=== PATIENT | male | born 1935 | race Caucasian/White ===

== ENCOUNTER 2024-04-21 18:36 | Inpatient (IN) | payer MEDICARE, OTHER ==
[~2024-04-21] VITALS: Ht 154.9 cm; Wt 40.8 kg
[2024-04-21] MEDS ORDERED: HYDROMORPHONE 1 MG/1 ML DISP.SYRIN ONE (19:27)
[2024-04-21] MEDS ORDERED: ONDANSETRON 4 MG/2 ML VIAL ONE (19:27)
[2024-04-21 19:28] LABS: BASOPHILS % (AUTO) 0.4 % (0.0-2.0); EOSINOPHILS % (AUTO) 0.2 % (0.0-7.0); HEMOGLOBIN 13.7 g/dL (12.5-16.3); LYMPHOCYTES # (AUTO) 1.3 K/uL (0.8-4.8); LYMPHOCYTES % (AUTO) 18.4 % (20.5-51.5); MEAN CORPUSCULAR HEMOGLOBIN 32.5 uug (23.8-33.4); MEAN CORPUSCULAR HGB CONC 33 g/dL (32.5-36.3); MEAN CORPUSCULAR VOLUME 97.4 fL (73.0-96.2); MONOCYTES # (AUTO) 0.9 K/uL (0.1-1.30); MONOCYTES % (AUTO) 13.6 % (0.0-11.0); NEUTROPHILS # (AUTO) 4.7 K/uL (1.8-8.9); NEUTROPHILS % (AUTO) 67.4 % (38.5-71.5); PLATELET COUNT (AUTO) 118 K/uL (152-348); RED BLOOD CELL COUNT(AUTO) 4.21 MIL/uL (4.06-5.63); RED CELL DISTRIBUTION WIDTH 15.8 % (12.1-16.2)
[2024-04-21 19:34] LABS: DIFFERENTIAL COMMENT 1
[2024-04-21 19:35] LABS: CALCIUM 9.7 mg/dL (8.5-10.1); CARBON DIOXIDE 35 mmol/L (21-32); CHLORIDE 98 mmol/L (98-107); CREATININE 1.9 mg/dL (0.6-1.3); GLUCOSE 94 mg/dL (74-106); POTASSIUM 4.7 mmol/L (3.5-5.1); SODIUM SERUM 140 mmol/L (136-145); UREA NITROGEN, BLOOD 50 mg/dL (7-18)
[2024-04-21] MEDS: HYDROMORPHONE 1 MG/1 ML DISP.SYRIN IV ONE (19:36)
[2024-04-21] MEDS: IV NORMAL SALINE 500 ML BAG IV ONE ×2 (19:36→22:50)
[2024-04-21] MEDS: ONDANSETRON 4 MG/2 ML VIAL IV ONE (19:37)
[2024-04-21 19:49] LABS: ALANINE AMINOTRANSFERASE 20 U/L (16-63); ALBUMIN 2.8 g/dL (3.4-5.0); ALKALINE PHOSPHATASE 88 U/L (50-136); ASPARTATE AMINOTRANSFERASE 25 U/L (15-37); BILIRUBIN,DIRECT 5.5 mg/dL (0.0-0.2); BILIRUBIN,TOTAL 5.9 mg/dL (0.2-1.0); NT-PRO BNP 19616 pg/mL (0-125); TOTAL PROTEIN, SERUM 8.5 g/dL (6.4-8.2)
[2024-04-21] MEDS ORDERED: ASPIRIN 81 MG TAB.CHEW ONE (20:17)
[2024-04-21] MEDS ORDERED: ENOXAPARIN SODIUM 40 MG/0.4 ML DISP.SYRIN SQ ONE (20:18)
[2024-04-21] MEDS ORDERED: NITROGLYCERIN OINT 1 GM PACKET TP ONE (20:18)
[2024-04-21] MEDS: NITROGLYCERIN OINT 1 GM PACKET TP ONE (20:38)
[2024-04-21] MEDS: ENOXAPARIN SODIUM 40 MG/0.4 ML DISP.SYRIN SQ ONE (20:40)
[2024-04-21] MEDS: ASPIRIN 81 MG TAB.CHEW PO ONE (20:41)
[2024-04-21 21:05] LABS: ABG BASE EXCESS 0.1 mmol/L (-2.0-3.0); ABG HCO3 35.8 mmol/L (21.0-28.0); ABG PCO2 144.2 mmHg (35.0-48.0); ABG PH 7.013 (7.350-7.450); ABG PO2 167.4 mmHg (83.0-108.0); ABG SITE RIGHT RADIAL; ABG TOTAL HEMOGLOBIN 14.3 G/dL (13.5-17.5); COHb 1.1 % (0.5-1.5); MetHb 0.5 % (0.0-1.5); O2Hb 97.1 % (94.0-98.0)
[2024-04-21] MEDS: ETOMIDATE 20 MG/10 ML VIAL IV ONE (21:51)
[2024-04-21] MEDS: SUCCINYLCHOLINE CHLORIDE 200 MG/10 ML VIAL IV ONE (21:52)
[2024-04-21] MEDS ORDERED: ETOMIDATE 20 MG/10 ML VIAL ONE ×2 (22:30)
[2024-04-21] MEDS ORDERED: PROPOFOL 100 ML ONE (22:36)
[2024-04-21] MEDS ORDERED: ONDANSETRON 4 MG/2 ML VIAL IV PRN (22:45)
[2024-04-21] MEDS ORDERED: ACETAMINOPHEN 650 MG SUPP.RECT RC PRN (22:45)
[2024-04-21] MEDS ORDERED: REMEDY ESSENTIAL ZINC PASTE 113 GM TP PRN (22:45)
[2024-04-21] MEDS: PROPOFOL 100 ML IV ONE (22:50)
[2024-04-21 23:04] LABS: ABG BASE EXCESS 1.5 mmol/L (-2.0-3.0); ABG HCO3 27.5 mmol/L (21.0-28.0); ABG PCO2 48.5 mmHg (35.0-48.0); ABG PH 7.371 (7.350-7.450); ABG PO2 372.9 mmHg (83.0-108.0); ABG SITE RIGHT RADIAL; ABG TOTAL HEMOGLOBIN 13.5 G/dL (13.5-17.5); AaDO2 99.8 mmHg; COHb 0.8 % (0.5-1.5); MetHb 0.2 % (0.0-1.5); O2Hb 98.7 % (94.0-98.0); VT, ABG 450 mL
[2024-04-21] MEDS: IV NORMAL SALINE 1000 ML BAG IV ONE (23:59)
[2024-04-22] VITALS (58 sets, daily range): BP systolic 56–165; BP diastolic 37–96; TEMP 97.3–99.8; O2SAT 93–100
[2024-04-22] MEDS ORDERED: NOREPINEPHRINE 8MG/NS 250ML 250 ML IV PRN ×2 (02:00→02:45)
[2024-04-22] MEDS: NOREPINEPHRINE 8MG/NS 250ML 250 ML IV PRN (02:59)
[2024-04-22] MEDS: PROPOFOL 100 ML IV PRN (03:19)
[2024-04-22 07:46] LABS: ABG BASE EXCESS 0.5 mmol/L (-2.0-3.0); ABG HCO3 21.1 mmol/L (21.0-28.0); ABG PCO2 24.1 mmHg (35.0-48.0); ABG PO2 84.5 mmHg (83.0-108.0); ABG SITE RIGHT RADIAL; ABG TOTAL HEMOGLOBIN 13.3 G/dL (13.5-17.5); AaDO2 97.6 mmHg; COHb 0.2 % (0.5-1.5); MetHb 0.3 % (0.0-1.5); O2Hb 97.2 % (94.0-98.0); VT, ABG 450 mL
[2024-04-22 07:56] LABS: BASOPHILS # (AUTO) 0.1 K/UL (0.0-0.2); BASOPHILS % (AUTO) 0.8 % (0.0-2.0); EOSINOPHILS % (AUTO) 0.2 % (0.0-7.0); HEMATOCRIT 35.7 % (36.7-47.1); LYMPHOCYTES # (AUTO) 1.5 K/uL (0.8-4.8); LYMPHOCYTES % (AUTO) 11.3 % (20.5-51.5); MEAN CORPUSCULAR HEMOGLOBIN 31.8 uug (23.8-33.4); MEAN CORPUSCULAR HGB CONC 34 g/dL (32.5-36.3); MEAN CORPUSCULAR VOLUME 94.9 fL (73.0-96.2); MONOCYTES % (AUTO) 7.8 % (0.0-11.0); NEUTROPHILS # (AUTO) 10.5 K/uL (1.8-8.9); NEUTROPHILS % (AUTO) 79.9 % (38.5-71.5); PLATELET COUNT (AUTO) 180 K/uL (152-348); RED BLOOD CELL COUNT(AUTO) 3.76 MIL/uL (4.06-5.63); RED CELL DISTRIBUTION WIDTH 15.2 % (12.1-16.2); WHITE BLOOD COUNT (AUTO) 13.1 K/uL (3.6-10.2)
[2024-04-22 07:59] LABS: DIFFERENTIAL COMMENT 1
[2024-04-22 08:31] LABS: MAGNESIUM 1.7 mg/dL (1.8-2.4); PHOSPHOROUS 2.2 mg/dL (2.5-4.9)
[2024-04-22 08:34] LABS: ALANINE AMINOTRANSFERASE 18 U/L (16-63); ALBUMIN 2.2 g/dL (3.4-5.0); ALKALINE PHOSPHATASE 72 U/L (50-136); ASPARTATE AMINOTRANSFERASE 33 U/L (15-37); BILIRUBIN,TOTAL 5.8 mg/dL (0.2-1.0); CARBON DIOXIDE 27 mmol/L (21-32); CHLORIDE 103 mmol/L (98-107); CREATININE 2.1 mg/dL (0.6-1.3); POTASSIUM 4.2 mmol/L (3.5-5.1); SODIUM SERUM 142 mmol/L (136-145); TOTAL PROTEIN, SERUM 6.9 g/dL (6.4-8.2); UREA NITROGEN, BLOOD 54 mg/dL (7-18)
[2024-04-22 08:54] LABS: GLUCOSE 48 mg/dL (74-106)
[2024-04-22] MEDS: PANTOPRAZOLE SODIUM 40 MG VIAL IV SCH (10:31)
[2024-04-22] MEDS: IV D5 1/2 NS 1000 ML 1,000 ML IV SCH (10:49)
[2024-04-22 11:14] LABS: ANISOCYTOSIS 1+; BAND % (MANUAL) 4 % (0-10); LYMPHOCYTES % (MANUAL) 18 % (20-40); MONOCYTES % (MANUAL) 5 % (2-10); NEUTROPHILS % (MANUAL) 73 % (42-75); PLATELET ESTIMATE ADEQUATE
[2024-04-22] MEDS ORDERED: PIPERACILLIN SODIUM/TAZOBACTAM 3.375 G in IV DEXTROSE 5% 50 ML IV SCH (12:00)
[2024-04-22] MEDS: MAGNESIUM SULFATE/D5W 100 ML IV SCH (12:05)
[2024-04-22] MEDS: PRECEDEX 400 MCG/100 ML BOTTLE 100 ML IV PRN (12:11)
[2024-04-22] MEDS: methylPREDNISolone SOD SUCC 40 MG/ML VIAL IV SCH (12:32)
[2024-04-22] MEDS: FENTANYL CITRATE/PF 1,000 MCG in IV NORMAL SALINE 80 ML IV PRN (12:55)
[2024-04-22 13:16] LABS: ABG BASE EXCESS 1.9 mmol/L (-2.0-3.0); ABG HCO3 25.3 mmol/L (21.0-28.0); ABG PCO2 35.5 mmHg (35.0-48.0); ABG PO2 100.3 mmHg (83.0-108.0); ABG SITE RIGHT RADIAL; ABG TOTAL HEMOGLOBIN 13.5 G/dL (13.5-17.5); AaDO2 97.9 mmHg; COHb 0.3 % (0.5-1.5); MetHb 0.3 % (0.0-1.5); O2Hb 97.5 % (94.0-98.0); VT, ABG 330 mL
[2024-04-22] MEDS: LEVALBUTEROL HCL NEB 0.63 MG/3 ML NEBU NEB SCH (14:04)
[2024-04-22] MEDS: IPRATROPIUM BROMIDE 0.5 MG/2.5 ML NEBU NEB SCH (14:04)
[2024-04-22] MEDS: VANCOMYCIN HCL 750 MG in IV DEXTROSE 5% 250 ML IV ONE (20:11)
[2024-04-22] MEDS: PIPERACILLIN/TAZO 2.25 G in IV DEXTROSE 5% 50 ML IV SCH (20:29)
[2024-04-22] MEDS: SODIUM PHOSPHATE MM 15 MMOL in IV NORMAL SALINE 250 ML IV ONE (20:29)
[2024-04-22] MEDS ORDERED: ENOXAPARIN SODIUM 30 MG/0.3 ML DISP.SYRIN SUBCUT SCH (21:00)
[2024-04-22] MEDS: ENOXAPARIN SODIUM 40 MG/0.4 ML DISP.SYRIN SQ SCH (21:22)
[2024-04-23] VITALS (67 sets, daily range): BP systolic 58–174; BP diastolic 46–100; TEMP 97.8–98.8; O2SAT 97–100
[2024-04-23] MEDS ORDERED: CEFEPIME HCL 1 G VIAL ONE (00:19)
[2024-04-23] MEDS: CEFEPIME HCL 1 G in IV DEXTROSE 5% 50 ML IV ONE (02:18)
[2024-04-23 05:11] LABS: HEMATOCRIT 37.7 % (36.7-47.1); HEMOGLOBIN 12.6 g/dL (12.5-16.3); LYMPHOCYTES # (AUTO) 0.7 K/uL (0.8-4.8); LYMPHOCYTES % (AUTO) 5.5 % (20.5-51.5); MEAN CORPUSCULAR HEMOGLOBIN 31.8 uug (23.8-33.4); MEAN CORPUSCULAR HGB CONC 34 g/dL (32.5-36.3); MEAN CORPUSCULAR VOLUME 94.8 fL (73.0-96.2); MONOCYTES # (AUTO) 0.5 K/uL (0.1-1.30); MONOCYTES % (AUTO) 4.3 % (0.0-11.0); NEUTROPHILS # (AUTO) 10.9 K/uL (1.8-8.9); NEUTROPHILS % (AUTO) 90.2 % (38.5-71.5); PLATELET COUNT (AUTO) 139 K/uL (152-348); RED BLOOD CELL COUNT(AUTO) 3.98 MIL/uL (4.06-5.63); RED CELL DISTRIBUTION WIDTH 15.8 % (12.1-16.2); WHITE BLOOD COUNT (AUTO) 12.1 K/uL (3.6-10.2)
[2024-04-23 05:25] LABS: ALANINE AMINOTRANSFERASE 16 U/L (16-63); ALBUMIN 1.9 g/dL (3.4-5.0); ALKALINE PHOSPHATASE 69 U/L (50-136); ASPARTATE AMINOTRANSFERASE 33 U/L (15-37); BILIRUBIN,TOTAL 5.3 mg/dL (0.2-1.0); CALCIUM 8.1 mg/dL (8.5-10.1); CARBON DIOXIDE 25 mmol/L (21-32); CHLORIDE 99 mmol/L (98-107); CREATININE 2.1 mg/dL (0.6-1.3); GLUCOSE 319 mg/dL (74-106); POTASSIUM 4.1 mmol/L (3.5-5.1); SODIUM SERUM 137 mmol/L (136-145); TOTAL PROTEIN, SERUM 6.8 g/dL (6.4-8.2); UREA NITROGEN, BLOOD 50 mg/dL (7-18)
[2024-04-23 06:56] LABS: BILIRUBIN,DIRECT 4.8 mg/dL (0.0-0.2); PHOSPHOROUS 5.8 mg/dL (2.5-4.9)
[2024-04-23 06:59] LABS: THYROID STIMULATING HORMONE 3.406 mIU/mL (0.358-3.740)
[2024-04-23 07:20] LABS: VANCOMYCIN,RANDOM 10.1 ug/mL (20.0-30.0)
[2024-04-23] MEDS: VANCOMYCIN IV 500 MG in IV DEXTROSE 5% 100 ML IV ONE (09:04)
[2024-04-23] MEDS: APIXABAN 2.5 MG TABLET PO SCH (11:10)
[2024-04-23 11:43] LABS: *BLOOD, URINE 3+ (NEGATIVE); *CLARITY,URINE CLEAR (CLEAR); *COLOR,URINE YELLOW (YELLOW); *KETONES,URINE NEGATIVE (NEGATIVE); *PROTEIN,URINE 2+ (NEGATIVE); *UROBILINOGEN,URINE 0.2 E.U./dl (NORMAL); LEUKOCYTE ESTERASE ,URINE NEGATIVE (NEGATIVE); NITRITE, URINE NEGATIVE (NEGATIVE); PH,URINE 5.5 (5.0-8.0); UGLUCOSE TRACE (NEGATIVE)
[2024-04-23 11:49] LABS: *BILIRUBIN,URIN 1+ (NEGATIVE)
[2024-04-23 12:29] LABS: BACTERIA,URINE FEW /HPF (NONE SEEN); RBC,URINE 80-100 /HPF (0-3); SQUAMOUS EPITHELIAL CELL,UR FEW /HPF (NONE SEEN)
[2024-04-24] VITALS (19 sets, daily range): BP systolic 86–168; BP diastolic 48–126; TEMP 94.8–98.8; O2SAT 99–100
[2024-04-24] MEDS ORDERED: CEFEPIME HCL 0.5 G in IV DEXTROSE 5% 50 ML IV SCH ×2 (02:00→09:00)
[2024-04-24] MEDS: CEFEPIME HCL 1 G in IV DEXTROSE 5% 50 ML IV SCH (02:37)
[2024-04-24 05:16] LABS: BASOPHILS % (AUTO) 0.2 % (0.0-2.0); HEMATOCRIT 37.2 % (36.7-47.1); HEMOGLOBIN 12.1 g/dL (12.5-16.3); LYMPHOCYTES # (AUTO) 0.3 K/uL (0.8-4.8); MEAN CORPUSCULAR HEMOGLOBIN 31.1 uug (23.8-33.4); MEAN CORPUSCULAR HGB CONC 33 g/dL (32.5-36.3); MEAN CORPUSCULAR VOLUME 95.8 fL (73.0-96.2); MONOCYTES # (AUTO) 0.7 K/uL (0.1-1.30); MONOCYTES % (AUTO) 6.5 % (0.0-11.0); NEUTROPHILS # (AUTO) 10.4 K/uL (1.8-8.9); NEUTROPHILS % (AUTO) 90.3 % (38.5-71.5); PLATELET COUNT (AUTO) 150 K/uL (152-348); RED BLOOD CELL COUNT(AUTO) 3.89 MIL/uL (4.06-5.63); RED CELL DISTRIBUTION WIDTH 16.5 % (12.1-16.2); WHITE BLOOD COUNT (AUTO) 11.5 K/uL (3.6-10.2)
[2024-04-24 05:25] LABS: DIFFERENTIAL COMMENT 1
[2024-04-24 05:44] LABS: ALANINE AMINOTRANSFERASE 17 U/L (16-63); ALBUMIN 1.9 g/dL (3.4-5.0); ALKALINE PHOSPHATASE 69 U/L (50-136); ASPARTATE AMINOTRANSFERASE 26 U/L (15-37); BILIRUBIN,TOTAL 4.7 mg/dL (0.2-1.0); CALCIUM 8.4 mg/dL (8.5-10.1); CARBON DIOXIDE 28 mmol/L (21-32); CHLORIDE 96 mmol/L (98-107); CREATININE 2.1 mg/dL (0.6-1.3); MAGNESIUM 2.3 mg/dL (1.8-2.4); PHOSPHOROUS 4.9 mg/dL (2.5-4.9); POTASSIUM 4.2 mmol/L (3.5-5.1); SODIUM SERUM 133 mmol/L (136-145); TOTAL PROTEIN, SERUM 6.8 g/dL (6.4-8.2); UREA NITROGEN, BLOOD 57 mg/dL (7-18); VANCOMYCIN,RANDOM 13.7 ug/mL (20.0-30.0)
[2024-04-24 05:53] LABS: GLUCOSE 499 mg/dL (74-106)
[2024-04-24] MEDS ORDERED: DEXTROSE 50% 50 ML DISP.SYRIN IV PRN (06:30)
[2024-04-24] MEDS: BLOOD SUGAR DIAGNOSTIC 1 EACH STRIP VI SCH (09:01)
[2024-04-24] MEDS: INSULIN REGULAR, HUMAN 1000 UNIT/10 ML VIAL SQ PRN (09:21)
[2024-04-24 09:40] LABS: ABG BASE EXCESS -2.7 mmol/L (-2.0-3.0); ABG HCO3 22.8 mmol/L (21.0-28.0); ABG PCO2 41.9 mmHg (35.0-48.0); ABG PH 7.353 (7.350-7.450); ABG PO2 118.9 mmHg (83.0-108.0); AaDO2 98.2 mmHg; COHb 0.3 % (0.5-1.5); MetHb 0.3 % (0.0-1.5); O2Hb 98.2 % (94.0-98.0); VT, ABG 330 mL
[2024-04-24] MEDS ORDERED: IV NORMAL SALINE 100 ML BAG IV PRN (11:15)
[2024-04-24 13:43] LABS: ABG BASE EXCESS -2.6 mmol/L (-2.0-3.0); ABG HCO3 27.3 mmol/L (21.0-28.0); ABG PH 7.191 (7.350-7.450); ABG PO2 99.7 mmHg (83.0-108.0); ABG SITE LEFT RADIAL; ABG TOTAL HEMOGLOBIN 13.7 G/dL (13.5-17.5); AaDO2 95.8 mmHg; COHb 0.3 % (0.5-1.5); MetHb 0.3 % (0.0-1.5); O2Hb 96.4 % (94.0-98.0)
[2024-04-24] MEDS: VANCOMYCIN IV 500 MG in IV DEXTROSE 5% 100 ML IV ONE (17:03)
[2024-04-24] MEDS: ALBUTEROL SULFATE 1.25 MG/3 ML NEBU NEB SCH (19:24)
[2024-04-25] VITALS (96 sets, daily range): BP systolic 76–131; BP diastolic 48–102; TEMP 97.6–98.8; O2SAT 98–100
[2024-04-25 05:28] LABS: BASOPHILS % (AUTO) 0.2 % (0.0-2.0); HEMATOCRIT 35.2 % (36.7-47.1); HEMOGLOBIN 11.7 g/dL (12.5-16.3); LYMPHOCYTES # (AUTO) 0.7 K/uL (0.8-4.8); LYMPHOCYTES % (AUTO) 6.6 % (20.5-51.5); MEAN CORPUSCULAR HEMOGLOBIN 31.5 uug (23.8-33.4); MEAN CORPUSCULAR HGB CONC 33 g/dL (32.5-36.3); MEAN CORPUSCULAR VOLUME 94.9 fL (73.0-96.2); NEUTROPHILS # (AUTO) 9.2 K/uL (1.8-8.9); NEUTROPHILS % (AUTO) 84.2 % (38.5-71.5); PLATELET COUNT (AUTO) 156 K/uL (152-348); RED BLOOD CELL COUNT(AUTO) 3.71 MIL/uL (4.06-5.63); RED CELL DISTRIBUTION WIDTH 15.5 % (12.1-16.2); WHITE BLOOD COUNT (AUTO) 10.9 K/uL (3.6-10.2)
[2024-04-25 05:39] LABS: DIFFERENTIAL COMMENT 1
[2024-04-25 06:15] LABS: ALANINE AMINOTRANSFERASE 23 U/L (16-63); ALBUMIN 1.9 g/dL (3.4-5.0); ALKALINE PHOSPHATASE 78 U/L (50-136); ASPARTATE AMINOTRANSFERASE 20 U/L (15-37); BILIRUBIN,TOTAL 3.8 mg/dL (0.2-1.0); CALCIUM 8.1 mg/dL (8.5-10.1); CARBON DIOXIDE 27 mmol/L (21-32); CHLORIDE 102 mmol/L (98-107); CREATININE 2.1 mg/dL (0.6-1.3); GLUCOSE 224 mg/dL (74-106); POTASSIUM 4.5 mmol/L (3.5-5.1); SODIUM SERUM 137 mmol/L (136-145); TOTAL PROTEIN, SERUM 6.6 g/dL (6.4-8.2); UREA NITROGEN, BLOOD 64 mg/dL (7-18)
[2024-04-25] MEDS: IV NS 1000 ML 1,000 ML IV PRN (08:39)
[2024-04-25] MEDS: GLUCERNA 1.2 1000ML LIQUID GT PRN (11:17)
[2024-04-25 15:37] LABS: ABG BASE EXCESS -1.1 mmol/L (-2.0-3.0); ABG HCO3 26.1 mmol/L (21.0-28.0); ABG PCO2 54.3 mmHg (35.0-48.0); ABG PO2 107.6 mmHg (83.0-108.0); ABG SITE RIGHT RADIAL; AaDO2 97.4 mmHg; COHb 0.3 % (0.5-1.5); MetHb 0.3 % (0.0-1.5); O2Hb 97.6 % (94.0-98.0); VT, ABG 330 mL
[2024-04-25] MEDS: VANCOMYCIN IV 500 MG in IV DEXTROSE 5% 100 ML IV ONE (18:04)
[2024-04-26] VITALS (83 sets, daily range): BP systolic 90–149; BP diastolic 50–92; TEMP 96.9–98.8; O2SAT 97–100
[2024-04-26 05:56] LABS: BASOPHILS % (AUTO) 0.1 % (0.0-2.0); HEMATOCRIT 34.5 % (36.7-47.1); HEMOGLOBIN 11.5 g/dL (12.5-16.3); LYMPHOCYTES # (AUTO) 0.7 K/uL (0.8-4.8); LYMPHOCYTES % (AUTO) 10.2 % (20.5-51.5); MEAN CORPUSCULAR HGB CONC 34 g/dL (32.5-36.3); MEAN CORPUSCULAR VOLUME 95.6 fL (73.0-96.2); MONOCYTES # (AUTO) 0.8 K/uL (0.1-1.30); MONOCYTES % (AUTO) 11.2 % (0.0-11.0); NEUTROPHILS # (AUTO) 5.7 K/uL (1.8-8.9); NEUTROPHILS % (AUTO) 78.5 % (38.5-71.5); PLATELET COUNT (AUTO) 123 K/uL (152-348); RED BLOOD CELL COUNT(AUTO) 3.61 MIL/uL (4.06-5.63); RED CELL DISTRIBUTION WIDTH 15.8 % (12.1-16.2); WHITE BLOOD COUNT (AUTO) 7.3 K/uL (3.6-10.2)
[2024-04-26 06:01] LABS: ABG BASE EXCESS 1.1 mmol/L (-2.0-3.0); ABG HCO3 28.3 mmol/L (21.0-28.0); ABG PCO2 56.4 mmHg (35.0-48.0); ABG PH 7.318 (7.350-7.450); ABG PO2 104.9 mmHg (83.0-108.0); ABG SITE RIGHT RADIAL; ABG TOTAL HEMOGLOBIN 12.6 G/dL (13.5-17.5); AaDO2 97.3 mmHg; MetHb 0.2 % (0.0-1.5); O2Hb 97.8 % (94.0-98.0); VT, ABG 330 mL
[2024-04-26 06:39] LABS: DIFFERENTIAL COMMENT 1
[2024-04-26 06:44] LABS: ALANINE AMINOTRANSFERASE 15 U/L (16-63); ALBUMIN 1.8 g/dL (3.4-5.0); ALKALINE PHOSPHATASE 111 U/L (50-136); ASPARTATE AMINOTRANSFERASE 14 U/L (15-37); BILIRUBIN,TOTAL 3.2 mg/dL (0.2-1.0); CALCIUM 8.1 mg/dL (8.5-10.1); CARBON DIOXIDE 28 mmol/L (21-32); CHLORIDE 106 mmol/L (98-107); CREATININE 1.9 mg/dL (0.6-1.3); GLUCOSE 242 mg/dL (74-106); POTASSIUM 4.6 mmol/L (3.5-5.1); SODIUM SERUM 140 mmol/L (136-145); TOTAL PROTEIN, SERUM 6.2 g/dL (6.4-8.2); UREA NITROGEN, BLOOD 62 mg/dL (7-18)
[2024-04-26 07:15] LABS: VANCOMYCIN,RANDOM 18.8 ug/mL (20.0-30.0)
[2024-04-26] MEDS: GLUCERNA 1.2 1000ML LIQUID GT PRN (10:00)
[2024-04-26] MEDS ORDERED: PROPOFOL 100 ML IV PRN (11:15)
[2024-04-26] MEDS: PROPOFOL 100 ML IV PRN (11:36)
[2024-04-26] MEDS ORDERED: ALBUMIN HUMAN 25% 100 ML ONE (20:42)
[2024-04-26] MEDS: ALBUMIN HUMAN 25% 100 ML IV ONE (20:52)
[2024-04-27] VITALS (78 sets, daily range): BP systolic 114–154; BP diastolic 59–92; TEMP 97.6–98.8; O2SAT 97–100
[2024-04-27 05:26] LABS: BASOPHILS % (AUTO) 0.1 % (0.0-2.0); HEMATOCRIT 34.6 % (36.7-47.1); HEMOGLOBIN 11.5 g/dL (12.5-16.3); LYMPHOCYTES # (AUTO) 0.9 K/uL (0.8-4.8); LYMPHOCYTES % (AUTO) 11.1 % (20.5-51.5); MEAN CORPUSCULAR HEMOGLOBIN 31.7 uug (23.8-33.4); MEAN CORPUSCULAR HGB CONC 33 g/dL (32.5-36.3); MEAN CORPUSCULAR VOLUME 95.4 fL (73.0-96.2); MONOCYTES # (AUTO) 1.1 K/uL (0.1-1.30); MONOCYTES % (AUTO) 12.6 % (0.0-11.0); NEUTROPHILS # (AUTO) 6.4 K/uL (1.8-8.9); NEUTROPHILS % (AUTO) 76.2 % (38.5-71.5); PLATELET COUNT (AUTO) 115 K/uL (152-348); RED BLOOD CELL COUNT(AUTO) 3.63 MIL/uL (4.06-5.63); RED CELL DISTRIBUTION WIDTH 15.8 % (12.1-16.2); WHITE BLOOD COUNT (AUTO) 8.4 K/uL (3.6-10.2)
[2024-04-27 06:01] LABS: CALCIUM 8.5 mg/dL (8.5-10.1); CARBON DIOXIDE 27 mmol/L (21-32); CHLORIDE 106 mmol/L (98-107); CREATININE 1.7 mg/dL (0.6-1.3); GLUCOSE 163 mg/dL (74-106); MAGNESIUM 2.2 mg/dL (1.8-2.4); PHOSPHOROUS 3.5 mg/dL (2.5-4.9); POTASSIUM 4.2 mmol/L (3.5-5.1); SODIUM SERUM 142 mmol/L (136-145); UREA NITROGEN, BLOOD 62 mg/dL (7-18)
[2024-04-27 06:02] LABS: ABG BASE EXCESS -0.4 mmol/L (-2.0-3.0); ABG HCO3 26.5 mmol/L (21.0-28.0); ABG PCO2 53.4 mmHg (35.0-48.0); ABG PH 7.314 (7.350-7.450); ABG PO2 105.4 mmHg (83.0-108.0); ABG TOTAL HEMOGLOBIN 12.5 G/dL (13.5-17.5); AaDO2 97.3 mmHg; COHb 0.3 % (0.5-1.5); MetHb 0.3 % (0.0-1.5); O2Hb 97.5 % (94.0-98.0); VT, ABG 330 mL
[2024-04-27] MEDS ORDERED: DEXTROSE 50% 50 ML DISP.SYRIN IV PRN (20:00)
[2024-04-27] MEDS ORDERED: INSULIN GLARGINE,HUM 300 UNITS/3 ML CARTRIDGE SQ ONE (21:25)
[2024-04-27] MEDS: INSULIN GLARGINE,HUM 300 UNITS/3 ML CARTRIDGE SQ SCH (21:55)
[2024-04-27 22:43] LABS: *BILIRUBIN,URIN NEGATIVE (NEGATIVE); *BLOOD, URINE 2+ (NEGATIVE); *CLARITY,URINE CLEAR (CLEAR); *COLOR,URINE YELLOW (YELLOW); *KETONES,URINE NEGATIVE (NEGATIVE); *PROTEIN,URINE 2+ (NEGATIVE); *UROBILINOGEN,URINE 0.2 E.U./dl (NORMAL); LEUKOCYTE ESTERASE ,URINE NEGATIVE (NEGATIVE); NITRITE, URINE NEGATIVE (NEGATIVE); PH,URINE 5.5 (5.0-8.0); UGLUCOSE TRACE (NEGATIVE)
[2024-04-27 23:12] LABS: BACTERIA,URINE FEW /HPF (NONE SEEN); SQUAMOUS EPITHELIAL CELL,UR MODERATE /HPF (NONE SEEN); WBC,URINE 0-3 /HPF (0-3)
[2024-04-27 23:13] LABS: CALCIUM OXALATE CRYSTALS,UR FEW /HPF (NONE SEEN)
[2024-04-27 23:19] LABS: MUCUS,URINE FEW /LPF (0-FEW)
[2024-04-28] VITALS (58 sets, daily range): BP systolic 100–143; BP diastolic 55–95; TEMP 97.5–99; O2SAT 98–100
[2024-04-28] MEDS: BLOOD SUGAR DIAGNOSTIC 1 EACH STRIP VI SCH (00:23)
[2024-04-28] MEDS: INSULIN REGULAR, HUMAN 1000 UNIT/10 ML VIAL SQ PRN (00:26)
[2024-04-28 05:21] LABS: BASOPHILS % (AUTO) 0.1 % (0.0-2.0); EOSINOPHILS % (AUTO) 0.2 % (0.0-7.0); HEMATOCRIT 35.7 % (36.7-47.1); HEMOGLOBIN 11.9 g/dL (12.5-16.3); LYMPHOCYTES # (AUTO) 1.1 K/uL (0.8-4.8); LYMPHOCYTES % (AUTO) 13.1 % (20.5-51.5); MEAN CORPUSCULAR HEMOGLOBIN 31.5 uug (23.8-33.4); MEAN CORPUSCULAR HGB CONC 33 g/dL (32.5-36.3); MEAN CORPUSCULAR VOLUME 94.8 fL (73.0-96.2); MONOCYTES # (AUTO) 1.4 K/uL (0.1-1.30); MONOCYTES % (AUTO) 17.2 % (0.0-11.0); NEUTROPHILS # (AUTO) 5.8 K/uL (1.8-8.9); NEUTROPHILS % (AUTO) 69.4 % (38.5-71.5); PLATELET COUNT (AUTO) 108 K/uL (152-348); RED BLOOD CELL COUNT(AUTO) 3.77 MIL/uL (4.06-5.63); RED CELL DISTRIBUTION WIDTH 15.7 % (12.1-16.2); WHITE BLOOD COUNT (AUTO) 8.3 K/uL (3.6-10.2)
[2024-04-28 05:47] LABS: ALANINE AMINOTRANSFERASE 27 U/L (16-63); ALBUMIN 1.9 g/dL (3.4-5.0); ALKALINE PHOSPHATASE 115 U/L (50-136); ASPARTATE AMINOTRANSFERASE 20 U/L (15-37); BILIRUBIN,TOTAL 3.2 mg/dL (0.2-1.0); CALCIUM 8.4 mg/dL (8.5-10.1); CARBON DIOXIDE 30 mmol/L (21-32); CHLORIDE 108 mmol/L (98-107); CREATININE 1.6 mg/dL (0.6-1.3); GLUCOSE 170 mg/dL (74-106); MAGNESIUM 2.1 mg/dL (1.8-2.4); PHOSPHOROUS 2.7 mg/dL (2.5-4.9); SODIUM SERUM 144 mmol/L (136-145); UREA NITROGEN, BLOOD 57 mg/dL (7-18)
[2024-04-28 06:05] LABS: ABG BASE EXCESS 1.8 mmol/L (-2.0-3.0); ABG HCO3 27.1 mmol/L (21.0-28.0); ABG PCO2 45.2 mmHg (35.0-48.0); ABG PH 7.396 (7.350-7.450); ABG PO2 118.8 mmHg (83.0-108.0); ABG SITE LEFT RADIAL; ABG TOTAL HEMOGLOBIN 12.3 G/dL (13.5-17.5); AaDO2 98.3 mmHg; COHb 0.3 % (0.5-1.5); MetHb 0.4 % (0.0-1.5); O2Hb 97.8 % (94.0-98.0); VT, ABG 330 mL
[2024-04-28 06:25] LABS: DIFFERENTIAL COMMENT 1
[2024-04-28] MEDS: PANTOPRAZOLE ORAL SUSPENSION 40 MG SUSPDR.PKT GT SCH (09:19)
[2024-04-28 10:46] LABS: EOSINOPHILS % (MANUAL) 1 % (0-8); LYMPHOCYTES % (MANUAL) 13 % (20-40); MONOCYTES % (MANUAL) 17 % (2-10); NEUTROPHILS % (MANUAL) 69 % (42-75); PLATELET ESTIMATE DECREASED
[2024-04-28] MEDS: MEDIHONEY= THERAHONEY 1.5 OZ TUBE TOP SCH (13:40)
[2024-04-29] VITALS (57 sets, daily range): BP systolic 106–160; BP diastolic 58–103; TEMP 97.5–98.7; O2SAT 99–100
[2024-04-29 05:16] LABS: BASOPHILS % (AUTO) 0.3 % (0.0-2.0); EOSINOPHILS # (AUTO) 0.1 K/uL (0.0-0.7); EOSINOPHILS % (AUTO) 0.8 % (0.0-7.0); HEMOGLOBIN 12.6 g/dL (12.5-16.3); LYMPHOCYTES % (AUTO) 12.4 % (20.5-51.5); MEAN CORPUSCULAR HEMOGLOBIN 32.3 uug (23.8-33.4); MEAN CORPUSCULAR HGB CONC 34 g/dL (32.5-36.3); MEAN CORPUSCULAR VOLUME 94.6 fL (73.0-96.2); NEUTROPHILS # (AUTO) 5.8 K/uL (1.8-8.9); NEUTROPHILS % (AUTO) 73.5 % (38.5-71.5); PLATELET COUNT (AUTO) 106 K/uL (152-348); RED BLOOD CELL COUNT(AUTO) 3.91 MIL/uL (4.06-5.63); RED CELL DISTRIBUTION WIDTH 16.1 % (12.1-16.2); WHITE BLOOD COUNT (AUTO) 7.9 K/uL (3.6-10.2)
[2024-04-29 05:46] LABS: CARBON DIOXIDE 30 mmol/L (21-32); CHLORIDE 106 mmol/L (98-107); CREATININE 1.2 mg/dL (0.6-1.3); GLUCOSE 196 mg/dL (74-106); MAGNESIUM 1.8 mg/dL (1.8-2.4); POTASSIUM 3.8 mmol/L (3.5-5.1); SODIUM SERUM 142 mmol/L (136-145); UREA NITROGEN, BLOOD 47 mg/dL (7-18)
[2024-04-29 06:05] LABS: ABG BASE EXCESS 3.7 mmol/L (-2.0-3.0); ABG HCO3 28.6 mmol/L (21.0-28.0); ABG PCO2 44.2 mmHg (35.0-48.0); ABG PH 7.429 (7.350-7.450); ABG PO2 107.9 mmHg (83.0-108.0); ABG SITE RIGHT RADIAL; ABG TOTAL HEMOGLOBIN 14.8 G/dL (13.5-17.5); COHb 0.7 % (0.5-1.5); MetHb 0.3 % (0.0-1.5); O2Hb 97.4 % (94.0-98.0); VT, ABG 330 mL
[2024-04-29] MEDS: ARGININE/GLUTAMINE/CALCIUM BMB 1 EACH POWD.PACK NG SCH (08:19)
[2024-04-29] MEDS: GLUCERNA 1.2 1000ML LIQUID GT PRN (10:36)
[2024-04-30] VITALS (44 sets, daily range): BP systolic 112–160; BP diastolic 58–114; TEMP 97.7–99; O2SAT 100
[2024-04-30 05:14] LABS: BASOPHILS % (AUTO) 0.3 % (0.0-2.0); EOSINOPHILS # (AUTO) 0.1 K/uL (0.0-0.7); EOSINOPHILS % (AUTO) 1.8 % (0.0-7.0); HEMATOCRIT 35.3 % (36.7-47.1); LYMPHOCYTES % (AUTO) 17.6 % (20.5-51.5); MEAN CORPUSCULAR HEMOGLOBIN 32.1 uug (23.8-33.4); MEAN CORPUSCULAR HGB CONC 34 g/dL (32.5-36.3); MONOCYTES # (AUTO) 0.8 K/uL (0.1-1.30); MONOCYTES % (AUTO) 14.8 % (0.0-11.0); NEUTROPHILS # (AUTO) 3.6 K/uL (1.8-8.9); NEUTROPHILS % (AUTO) 65.5 % (38.5-71.5); PLATELET COUNT (AUTO) 112 K/uL (152-348); RED BLOOD CELL COUNT(AUTO) 3.75 MIL/uL (4.06-5.63); RED CELL DISTRIBUTION WIDTH 15.6 % (12.1-16.2); WHITE BLOOD COUNT (AUTO) 5.5 K/uL (3.6-10.2)
[2024-04-30 05:29] LABS: CALCIUM 7.8 mg/dL (8.5-10.1); CARBON DIOXIDE 32 mmol/L (21-32); CHLORIDE 108 mmol/L (98-107); CREATININE 1.2 mg/dL (0.6-1.3); GLUCOSE 110 mg/dL (74-106); MAGNESIUM 1.6 mg/dL (1.8-2.4); PHOSPHOROUS 2.8 mg/dL (2.5-4.9); POTASSIUM 3.4 mmol/L (3.5-5.1); SODIUM SERUM 145 mmol/L (136-145); UREA NITROGEN, BLOOD 43 mg/dL (7-18)
[2024-04-30 06:11] LABS: ABG BASE EXCESS 3.5 mmol/L (-2.0-3.0); ABG HCO3 28.5 mmol/L (21.0-28.0); ABG PCO2 43.9 mmHg (35.0-48.0); ABG PO2 110.4 mmHg (83.0-108.0); ABG SITE RIGHT RADIAL; ABG TOTAL HEMOGLOBIN 16.9 G/dL (13.5-17.5); AaDO2 98.1 mmHg; COHb 0.6 % (0.5-1.5); MetHb 0.3 % (0.0-1.5); O2Hb 97.8 % (94.0-98.0); VT, ABG 330 mL
[2024-04-30] MEDS: POTASSIUM CHLORIDE 20 MEQ POWDER PACKET GT ONE (13:29)
[2024-04-30] MEDS: MAGNESIUM OXIDE 400 MG TABLET GT ONE (15:19)
[2024-05-01] VITALS (24 sets, daily range): BP systolic 97–146; BP diastolic 56–83; TEMP 97.3–98.8; O2SAT 99–100
[2024-05-01 05:58] LABS: BASOPHILS % (AUTO) 0.6 % (0.0-2.0); EOSINOPHILS # (AUTO) 0.1 K/uL (0.0-0.7); EOSINOPHILS % (AUTO) 2.3 % (0.0-7.0); HEMATOCRIT 35.4 % (36.7-47.1); LYMPHOCYTES % (AUTO) 19.4 % (20.5-51.5); MEAN CORPUSCULAR HEMOGLOBIN 31.7 uug (23.8-33.4); MEAN CORPUSCULAR HGB CONC 34 g/dL (32.5-36.3); MEAN CORPUSCULAR VOLUME 93.6 fL (73.0-96.2); MONOCYTES # (AUTO) 0.8 K/uL (0.1-1.30); NEUTROPHILS # (AUTO) 3.2 K/uL (1.8-8.9); NEUTROPHILS % (AUTO) 61.7 % (38.5-71.5); PLATELET COUNT (AUTO) 126 K/uL (152-348); RED BLOOD CELL COUNT(AUTO) 3.78 MIL/uL (4.06-5.63); RED CELL DISTRIBUTION WIDTH 15.5 % (12.1-16.2); WHITE BLOOD COUNT (AUTO) 5.1 K/uL (3.6-10.2)
[2024-05-01 06:06] LABS: ABG BASE EXCESS 7.2 mmol/L (-2.0-3.0); ABG HCO3 31.9 mmol/L (21.0-28.0); ABG PCO2 45.3 mmHg (35.0-48.0); ABG PH 7.466 (7.350-7.450); ABG PO2 114.2 mmHg (83.0-108.0); ABG SITE ALINE; AaDO2 98.4 mmHg; COHb 0.4 % (0.5-1.5); MetHb 0.3 % (0.0-1.5); VT, ABG 330 mL
[2024-05-01 06:22] LABS: ALANINE AMINOTRANSFERASE 30 U/L (16-63); ALBUMIN 1.6 g/dL (3.4-5.0); ALKALINE PHOSPHATASE 105 U/L (50-136); ASPARTATE AMINOTRANSFERASE 26 U/L (15-37); BILIRUBIN,TOTAL 3.6 mg/dL (0.2-1.0); CALCIUM 7.7 mg/dL (8.5-10.1); CARBON DIOXIDE 34 mmol/L (21-32); CHLORIDE 106 mmol/L (98-107); CREATININE 0.9 mg/dL (0.6-1.3); GLUCOSE 116 mg/dL (74-106); MAGNESIUM 1.7 mg/dL (1.8-2.4); PHOSPHOROUS 2.5 mg/dL (2.5-4.9); POTASSIUM 3.7 mmol/L (3.5-5.1); SODIUM SERUM 143 mmol/L (136-145); TOTAL PROTEIN, SERUM 5.5 g/dL (6.4-8.2); UREA NITROGEN, BLOOD 43 mg/dL (7-18)
[2024-05-01] MEDS: ASCORBIC ACID 500 MG TABLET NG SCH (09:03)
[2024-05-01] MEDS: ZINC SULFATE 220 MG CAPSULE NG SCH (09:07)
[2024-05-01] MEDS: MAGNESIUM SULFATE/D5W 100 ML IV SCH (11:24)
[2024-05-01 12:25] LABS: EOSINOPHILS % (MANUAL) 1 % (0-8); LYMPHOCYTES % (MANUAL) 25 % (20-40); MONOCYTES % (MANUAL) 17 % (2-10); NEUTROPHILS % (MANUAL) 57 % (42-75)
[2024-05-01 12:26] LABS: ANISOCYTOSIS 1+; PLATELET ESTIMATE MODER
[2024-05-01] MEDS: FUROSEMIDE 20 MG/2 ML VIAL IV SCH (12:30)
[2024-05-02] VITALS (52 sets, daily range): BP systolic 82–141; BP diastolic 48–89; TEMP 97.4–98.9; O2SAT 98–100
[2024-05-02] MEDS: CEFEPIME HCL 2 GM in IV DEXTROSE 5% 100 ML IV SCH (02:03)
[2024-05-02 05:32] LABS: BASOPHILS # (AUTO) 0.1 K/UL (0.0-0.2); EOSINOPHILS # (AUTO) 0.1 K/uL (0.0-0.7); EOSINOPHILS % (AUTO) 2.1 % (0.0-7.0); HEMATOCRIT 36.6 % (36.7-47.1); HEMOGLOBIN 12.5 g/dL (12.5-16.3); LYMPHOCYTES # (AUTO) 0.9 K/uL (0.8-4.8); LYMPHOCYTES % (AUTO) 16.9 % (20.5-51.5); MEAN CORPUSCULAR HEMOGLOBIN 32.1 uug (23.8-33.4); MEAN CORPUSCULAR HGB CONC 34 g/dL (32.5-36.3); MONOCYTES # (AUTO) 0.7 K/uL (0.1-1.30); MONOCYTES % (AUTO) 12.9 % (0.0-11.0); NEUTROPHILS # (AUTO) 3.5 K/uL (1.8-8.9); NEUTROPHILS % (AUTO) 67.1 % (38.5-71.5); PLATELET COUNT (AUTO) 166 K/uL (152-348); RED BLOOD CELL COUNT(AUTO) 3.89 MIL/uL (4.06-5.63); RED CELL DISTRIBUTION WIDTH 15.1 % (12.1-16.2); WHITE BLOOD COUNT (AUTO) 5.2 K/uL (3.6-10.2)
[2024-05-02 05:52] LABS: DIFFERENTIAL COMMENT 1
[2024-05-02 05:57] LABS: CALCIUM 7.8 mg/dL (8.5-10.1); CARBON DIOXIDE 37 mmol/L (21-32); CHLORIDE 101 mmol/L (98-107); CREATININE 1.1 mg/dL (0.6-1.3); GLUCOSE 140 mg/dL (74-106); MAGNESIUM 1.9 mg/dL (1.8-2.4); POTASSIUM 3.3 mmol/L (3.5-5.1); SODIUM SERUM 140 mmol/L (136-145); TRIGLYCERIDES 555 MG/DL (30-150); UREA NITROGEN, BLOOD 46 mg/dL (7-18)
[2024-05-02] MEDS: POTASSIUM CHLORIDE 20 MEQ POWDER PACKET GT ONE (08:15)
[2024-05-03] VITALS (83 sets, daily range): BP systolic 88–130; BP diastolic 49–80; TEMP 97.9–99.3; O2SAT 98–100
[2024-05-03] MEDS: PRECEDEX 400 MCG/100 ML BOTTLE 100 ML IV PRN (10:10)
[2024-05-03] MEDS: ACETAMINOPHEN 650 MG/20.3 ML LIQUID UDC GT PRN (16:25)
[2024-05-03] MEDS ORDERED: MIDAZOLAM HCL 5 MG/ML VIAL ONE (23:25)
[2024-05-04] VITALS (90 sets, daily range): BP systolic 79–141; BP diastolic 43–87; TEMP 98.1–99; O2SAT 98–100
[2024-05-04] MEDS ORDERED: MIDAZOLAM HCL 10 MG/2 ML VIAL ONE (00:22)
[2024-05-04 05:09] LABS: BASOPHILS % (AUTO) 0.5 % (0.0-2.0); EOSINOPHILS # (AUTO) 0.1 K/uL (0.0-0.7); EOSINOPHILS % (AUTO) 0.8 % (0.0-7.0); HEMATOCRIT 38.3 % (36.7-47.1); HEMOGLOBIN 12.5 g/dL (12.5-16.3); LYMPHOCYTES # (AUTO) 1.3 K/uL (0.8-4.8); LYMPHOCYTES % (AUTO) 14.4 % (20.5-51.5); MEAN CORPUSCULAR HEMOGLOBIN 30.9 uug (23.8-33.4); MEAN CORPUSCULAR HGB CONC 33 g/dL (32.5-36.3); MEAN CORPUSCULAR VOLUME 94.3 fL (73.0-96.2); MONOCYTES # (AUTO) 1.2 K/uL (0.1-1.30); MONOCYTES % (AUTO) 13.5 % (0.0-11.0); NEUTROPHILS # (AUTO) 6.3 K/uL (1.8-8.9); NEUTROPHILS % (AUTO) 70.8 % (38.5-71.5); PLATELET COUNT (AUTO) 214 K/uL (152-348); RED BLOOD CELL COUNT(AUTO) 4.06 MIL/uL (4.06-5.63); WHITE BLOOD COUNT (AUTO) 8.9 K/uL (3.6-10.2)
[2024-05-04 05:38] LABS: CALCIUM 8.4 mg/dL (8.5-10.1); CARBON DIOXIDE 35 mmol/L (21-32); CHLORIDE 105 mmol/L (98-107); CREATININE 1.2 mg/dL (0.6-1.3); GLUCOSE 117 mg/dL (74-106); MAGNESIUM 2.1 mg/dL (1.8-2.4); PHOSPHOROUS 4.1 mg/dL (2.5-4.9); POTASSIUM 4.2 mmol/L (3.5-5.1); SODIUM SERUM 146 mmol/L (136-145); UREA NITROGEN, BLOOD 47 mg/dL (7-18)
[2024-05-04 05:58] LABS: ABG BASE EXCESS 10.5 mmol/L (-2.0-3.0); ABG HCO3 36.9 mmol/L (21.0-28.0); ABG PCO2 56.3 mmHg (35.0-48.0); ABG PH 7.434 (7.350-7.450); ABG PO2 101.8 mmHg (83.0-108.0); ABG SITE LEFT RADIAL; ABG TOTAL HEMOGLOBIN 13.7 G/dL (13.5-17.5); AaDO2 97.7 mmHg; COHb 0.8 % (0.5-1.5); MetHb 0.2 % (0.0-1.5); O2Hb 97.2 % (94.0-98.0); VT, ABG 330 mL
[2024-05-04] MEDS: MIDAZOLAM HCL 50 MG in IV NORMAL SALINE 40 ML IV PRN (07:43)
[2024-05-04] MEDS ORDERED: ATOR20TA PO (17:52)
[2024-05-04] MEDS ORDERED: DOCU100C36 PO (17:53)
[2024-05-04] MEDS ORDERED: DORZ10DR18 EACHEYE ×2 (17:54→17:59)
[2024-05-04] MEDS ORDERED: APIX2.5T PO (17:58)
[2024-05-04] MEDS ORDERED: FURO40TA5 PO (18:01)
[2024-05-04] MEDS ORDERED: GABA100C PO (18:02)
[2024-05-04] MEDS ORDERED: HYOS-17 SL (18:03)
[2024-05-04] MEDS ORDERED: IBUP-1955 PO (18:04)
[2024-05-04] MEDS ORDERED: EMPA10TA PO (18:04)
[2024-05-04] MEDS ORDERED: METO-358 PO (18:05)
[2024-05-04] MEDS ORDERED: PANT40TA2 PO (18:06)
[2024-05-04] MEDS ORDERED: GLYC2TAB2 PO (18:08)
[2024-05-04] MEDS ORDERED: SUCR1TAB PO (18:08)
[2024-05-04] MEDS ORDERED: TRAM50TA2 PO (18:09)
[2024-05-04] MEDS ORDERED: TAFA61CA PO (18:10)
[2024-05-04] MEDS ORDERED: LIPA1CAP21 PO (18:13)
[2024-05-05] VITALS (59 sets, daily range): BP systolic 88–126; BP diastolic 47–90; TEMP 98.2–99.5; O2SAT 98–100
[2024-05-05 05:09] LABS: BASOPHILS # (AUTO) 0.1 K/UL (0.0-0.2); BASOPHILS % (AUTO) 0.7 % (0.0-2.0); EOSINOPHILS # (AUTO) 0.1 K/uL (0.0-0.7); HEMATOCRIT 35.7 % (36.7-47.1); HEMOGLOBIN 11.7 g/dL (12.5-16.3); LYMPHOCYTES # (AUTO) 1.2 K/uL (0.8-4.8); LYMPHOCYTES % (AUTO) 14.4 % (20.5-51.5); MEAN CORPUSCULAR HEMOGLOBIN 30.7 uug (23.8-33.4); MEAN CORPUSCULAR HGB CONC 33 g/dL (32.5-36.3); MEAN CORPUSCULAR VOLUME 94.1 fL (73.0-96.2); MONOCYTES # (AUTO) 1.1 K/uL (0.1-1.30); MONOCYTES % (AUTO) 13.4 % (0.0-11.0); NEUTROPHILS # (AUTO) 5.7 K/uL (1.8-8.9); NEUTROPHILS % (AUTO) 70.5 % (38.5-71.5); PLATELET COUNT (AUTO) 243 K/uL (152-348); RED CELL DISTRIBUTION WIDTH 15.1 % (12.1-16.2); WHITE BLOOD COUNT (AUTO) 8.1 K/uL (3.6-10.2)
[2024-05-05 05:38] LABS: CALCIUM 8.6 mg/dL (8.5-10.1); CARBON DIOXIDE 36 mmol/L (21-32); CHLORIDE 104 mmol/L (98-107); GLUCOSE 77 mg/dL (74-106); PHOSPHOROUS 3.3 mg/dL (2.5-4.9); POTASSIUM 3.7 mmol/L (3.5-5.1); SODIUM SERUM 144 mmol/L (136-145); UREA NITROGEN, BLOOD 50 mg/dL (7-18)
[2024-05-05 05:57] LABS: ABG BASE EXCESS 9.6 mmol/L (-2.0-3.0); ABG HCO3 34.8 mmol/L (21.0-28.0); ABG PCO2 49.5 mmHg (35.0-48.0); ABG PH 7.465 (7.350-7.450); ABG PO2 93.9 mmHg (83.0-108.0); ABG SITE RIGHT RADIAL; ABG TOTAL HEMOGLOBIN 12.7 G/dL (13.5-17.5); AaDO2 97.4 mmHg; COHb 0.7 % (0.5-1.5); MetHb 0.1 % (0.0-1.5); VT, ABG 330 mL
[2024-05-06] VITALS (30 sets, daily range): BP systolic 98–143; BP diastolic 57–83; TEMP 98.8–101.4; O2SAT 97–100
[2024-05-07] VITALS (22 sets, daily range): BP systolic 92–131; BP diastolic 52–89; TEMP 97.6–99.1; O2SAT 99–100
[2024-05-07 05:15] LABS: BASOPHILS % (AUTO) 0.5 % (0.0-2.0); EOSINOPHILS # (AUTO) 0.1 K/uL (0.0-0.7); HEMATOCRIT 35.8 % (36.7-47.1); LYMPHOCYTES # (AUTO) 1.4 K/uL (0.8-4.8); MEAN CORPUSCULAR HEMOGLOBIN 31.4 uug (23.8-33.4); MEAN CORPUSCULAR HGB CONC 34 g/dL (32.5-36.3); MEAN CORPUSCULAR VOLUME 93.3 fL (73.0-96.2); MONOCYTES # (AUTO) 1.5 K/uL (0.1-1.30); MONOCYTES % (AUTO) 17.5 % (0.0-11.0); NEUTROPHILS # (AUTO) 5.7 K/uL (1.8-8.9); PLATELET COUNT (AUTO) 214 K/uL (152-348); RED BLOOD CELL COUNT(AUTO) 3.84 MIL/uL (4.06-5.63); RED CELL DISTRIBUTION WIDTH 14.9 % (12.1-16.2); WHITE BLOOD COUNT (AUTO) 8.8 K/uL (3.6-10.2)
[2024-05-07 05:25] LABS: CALCIUM 8.7 mg/dL (8.5-10.1); CARBON DIOXIDE 35 mmol/L (21-32); CHLORIDE 104 mmol/L (98-107); CREATININE 1.3 mg/dL (0.6-1.3); GLUCOSE 113 mg/dL (74-106); MAGNESIUM 2.1 mg/dL (1.8-2.4); PHOSPHOROUS 4.2 mg/dL (2.5-4.9); POTASSIUM 4.3 mmol/L (3.5-5.1); SODIUM SERUM 143 mmol/L (136-145); UREA NITROGEN, BLOOD 58 mg/dL (7-18)
[2024-05-07 06:06] LABS: ABG BASE EXCESS 8.7 mmol/L (-2.0-3.0); ABG HCO3 33.3 mmol/L (21.0-28.0); ABG PCO2 45.7 mmHg (35.0-48.0); ABG PO2 110.9 mmHg (83.0-108.0); ABG SITE LEFT RADIAL; ABG TOTAL HEMOGLOBIN 11.7 G/dL (13.5-17.5); AaDO2 98.3 mmHg; COHb 0.6 % (0.5-1.5); MetHb 0.3 % (0.0-1.5); O2Hb 97.5 % (94.0-98.0); VT, ABG 330 mL
[2024-05-07 06:51] LABS: EOSINOPHILS % (MANUAL) 1 % (0-8); LYMPHOCYTES % (MANUAL) 16 % (20-40); MONOCYTES % (MANUAL) 18 % (2-10); NEUTROPHILS % (MANUAL) 65 % (42-75)
[2024-05-07 06:52] LABS: PLATELET ESTIMATE ADEQUATE
[2024-05-08] VITALS (23 sets, daily range): BP systolic 99–123; BP diastolic 63–92; TEMP 97.5–99.1; O2SAT 99–100
[2024-05-08] MEDS: FREE WATER VIA TUBE FEEDING GT SCH (08:00)
[2024-05-08] MEDS ORDERED: HOME MED MISCELLANEOUS XX SCH ×3 (15:15)
[2024-05-08] MEDS ORDERED: APIXABAN 2.5 MG TABLET PO SCH (17:00)
[2024-05-08] MEDS ORDERED: DOCUSATE SODIUM 100 MG/10 ML LIQUID UDC PO SCH (17:00)
[2024-05-08] MEDS: DOCUSATE SODIUM 100 MG/10 ML LIQUID UDC GT SCH (17:41)
[2024-05-08] MEDS: SUCRALFATE 1 G/10 ML LIQUID UDC GT SCH (17:41)
[2024-05-08] MEDS: LIPASE/PROTEASE/AMYLASE 4200 UNITS CAPSULE.DR GT SCH (18:22)
[2024-05-08] MEDS: DORZOLAMIDE 2% OPHT DROP 10 ML BOTTLE EACHEYE SCH (20:47)
[2024-05-08] MEDS: ATORVASTATIN 20 MG TABLET GT SCH (20:48)
[2024-05-08] MEDS: GABAPENTIN 100 MG CAPSULE GT SCH (20:48)
[2024-05-09] VITALS (21 sets, daily range): BP systolic 89–161; BP diastolic 51–87; TEMP 97.5–98.1; O2SAT 100
[2024-05-09] MEDS ORDERED: PANTOPRAZOLE SODIUM 40 MG TABLET.DR PO SCH (07:30)
[2024-05-09] MEDS ORDERED: METOPROLOL SUCCINATE XL 50 MG TAB.SR.24H PO SCH (09:00)
[2024-05-10] VITALS (24 sets, daily range): BP systolic 92–142; BP diastolic 57–81; TEMP 97.6–98.7; O2SAT 100
[2024-05-11] VITALS (26 sets, daily range): BP systolic 89–148; BP diastolic 49–101; TEMP 97.4–98.8; O2SAT 99–100
[2024-05-12] VITALS (34 sets, daily range): BP systolic 85–141; BP diastolic 42–85; TEMP 97.9–98.9; O2SAT 100
[2024-05-13] VITALS (39 sets, daily range): BP systolic 92–137; BP diastolic 52–104; TEMP 97.1–98.7; O2SAT 100
[2024-05-13] MEDS: REMEDY ESSENTIAL ZINC PASTE 113 GM TOP SCH (21:21)
[2024-05-14] VITALS (36 sets, daily range): BP systolic 90–131; BP diastolic 54–89; TEMP 97.1–98.5; O2SAT 99–100
[2024-05-15] VITALS (25 sets, daily range): BP systolic 94–116; BP diastolic 49–84; TEMP 98.8–101.2; O2SAT 99–100
[2024-05-15] MEDS ORDERED: MORPHINE SULFATE PF IV DRIP 100 MG in IV DEXTROSE 5% 96 ML IV PRN (16:00)
[2024-05-15] MEDS: MORPHINE SULFATE PF IV DRIP 100 MG in IV DEXTROSE 5% 96 ML IV PRN (19:55)
[2024-05-15] MEDS: LORAZEPAM 2 MG/1 ML VIAL IV PRN (20:44)
== END 2024-05-16 01:45 | DRG 870 ==
LOC: ER 18:36 → CCU 21:20
PROC: 5A1955Z Respiratory Ventilation, Greater than 96 Consecutive Hours (ICD-10-PCS; principal; 2024-04-21)
PROC: 0BH17EZ Insertion of Endotracheal Airway into Trachea, Via Natural or Artificial Opening (ICD-10-PCS; 2024-04-21)
PROC: 02HV33Z Insertion of Infusion Device into Superior Vena Cava, Percutaneous Approach (ICD-10-PCS; 2024-04-22)
PROC: 02HV33Z Insertion of Infusion Device into Superior Vena Cava, Percutaneous Approach (ICD-10-PCS; 2024-04-22)
PROC: 0W9930Z Drainage of Right Pleural Cavity with Drainage Device, Percutaneous Approach (ICD-10-PCS; 2024-04-30)
DX: A41.9 Sepsis, unspecified organism (principal); J69.0 Pneumonitis due to inhalation of food and vomit; I21.A1 Myocardial infarction type 2; J96.21 Acute and chronic respiratory failure with hypoxia; I26.99 Other pulmonary embolism without acute cor pulmonale; I50.33 Acute on chronic diastolic (congestive) heart failure; R65.21 Severe sepsis with septic shock; J96.22 Acute and chronic respiratory failure with hypercapnia; J18.9 Pneumonia, unspecified organism; E43 Unspecified severe protein-calorie malnutrition; N17.0 Acute kidney failure with tubular necrosis; G92.8 Other toxic encephalopathy; I13.0 Hypertensive heart and chronic kidney disease with heart failure and stage 1 through stage 4 chronic kidney disease, or unspecified chronic kidney disease; J44.1 Chronic obstructive pulmonary disease with (acute) exacerbation; J91.8 Pleural effusion in other conditions classified elsewhere; R64 Cachexia; Z68.1 Body mass index [BMI] 19.9 or less, adult; D68.59 Other primary thrombophilia; I48.20 Chronic atrial fibrillation, unspecified; I42.8 Other cardiomyopathies; E85.9 Amyloidosis, unspecified; J44.0 Chronic obstructive pulmonary disease with (acute) lower respiratory infection; E87.29 Other acidosis; J98.11 Atelectasis; Z51.5 Encounter for palliative care; Z66 Do not resuscitate; E88.09 Other disorders of plasma-protein metabolism, not elsewhere classified; M15.9 Polyosteoarthritis, unspecified; S30.0XXA Contusion of lower back and pelvis, initial encounter; X58.XXXA Exposure to other specified factors, initial encounter; Y92.89 Other specified places as the place of occurrence of the external cause; N40.0 Benign prostatic hyperplasia without lower urinary tract symptoms; K80.20 Calculus of gallbladder without cholecystitis without obstruction; R62.7 Adult failure to thrive; R31.29 Other microscopic hematuria; N18.9 Chronic kidney disease, unspecified; E11.65 Type 2 diabetes mellitus with hyperglycemia; E78.5 Hyperlipidemia, unspecified; E11.22 Type 2 diabetes mellitus with diabetic chronic kidney disease; E86.0 Dehydration; Z87.891 Personal history of nicotine dependence; Z99.81 Dependence on supplemental oxygen; D64.9 Anemia, unspecified; Z79.01 Long term (current) use of anticoagulants; Z74.01 Bed confinement status
CPT/HCPCS: 32555; 36415; 36600; 70030-TC; 71045; 73502; 76770; 82803; 83605; 83690; 83735; 84100; 84153; 84443; 84478; 84484; 85025; 85730; 87040; 93307; 93880; 94002; 94003; 94640; 94664; 94760; 99082-TC; A4606; A4663; A6209; G0378; J0278; J0330; J0692; J1171; J1650; J1815; J1940; J2060; J2250; J2274; J2405; J2470; J2543; J2919; J3010; J3370; J3475; J3490; J3590; J7040; J7050; J7614; P9047